=== PATIENT | female | born 1980 ===

== ENCOUNTER 2021-07-03 05:36 | Day surgery (SDC) | payer OTHER ==
[~2021-07-03 05:36] MED LIST: B COMPLEX1 EACH PO; LEXAPRO5 MG PO; OMEGA-31000 MG PO; PLAQUENIL PO
== END 2021-07-03 10:30 | disposition home or self-care (01) ==
LOC: CIR.AMB 05:36
PROVIDERS: ATTEND Otolaryngology Otology & Neurotology
DX: L98.8 Other specified disorders of the skin and subcutaneous tissue (principal); Z91.011 Allergy to milk products; Z91.018 Allergy to other foods; I10 Essential (primary) hypertension; E16.2 Hypoglycemia, unspecified; F41.9 Anxiety disorder, unspecified; M79.7 Fibromyalgia; K21.9 Gastro-esophageal reflux disease without esophagitis; M35.00 Sjogren syndrome, unspecified; Z79.01 Long term (current) use of anticoagulants; Z20.822 Contact with and (suspected) exposure to COVID-19